=== PATIENT | female | born 1945 | race Caucasian/White ===

== ENCOUNTER 2019-06-23 05:34 | Outpatient (RCR) | payer MEDICARE, SELFPAY | END 2019-06-23 23:59 | disposition home or self-care (01) | LOC: ONCMED 05:34 | PROVIDERS: Family Provider Family Medicine; Referring Provider Surgery; Visit Provider Internal Medicine Hematology & Oncology | DX: Z51.11 Encounter for antineoplastic chemotherapy (principal); C20 Malignant neoplasm of rectum; C78.7 Secondary malignant neoplasm of liver and intrahepatic bile duct; K59.00 Constipation, unspecified; Z92.3 Personal history of irradiation; R91.8 Other nonspecific abnormal finding of lung field; Z91.81 History of falling | CPT/HCPCS: 36415; 80053; 85025; 96367; 96368; 96374; 96375; 96413; 96415; 96416; 96417; 99214; J0640; J1100; J1642; J2405; J2469; J9035; J9263 ×2 ==

== ENCOUNTER 2019-07-12 05:35 | Outpatient (RCR) | payer SELFPAY | END 2019-07-19 00:01 | LOC: ONCMED 05:35 | PROVIDERS: Family Provider Family Medicine; Referring Provider Surgery; Visit Provider Internal Medicine Hematology & Oncology | DX: C20 Malignant neoplasm of rectum (principal); C78.7 Secondary malignant neoplasm of liver and intrahepatic bile duct; R91.8 Other nonspecific abnormal finding of lung field; S02.32XD Fracture of orbital floor, left side, subsequent encounter for fracture with routine healing; S02.40DD Maxillary fracture, left side, subsequent encounter for fracture with routine healing; W19.XXXD Unspecified fall, subsequent encounter; Z91.81 History of falling; Z79.899 Other long term (current) drug therapy | CPT/HCPCS: 80053 ×2; 85025 ×2; 99214 ×2 ==

== ENCOUNTER 2019-07-20 13:52 | Outpatient (RCR) | payer MEDICARE, SELFPAY | END 2019-08-19 23:59 | disposition home or self-care (01) | LOC: MPT 13:52 | PROVIDERS: Family Provider Family Medicine; PCP Family Medicine; Visit Provider Radiology Radiation Oncology | DX: C20 Malignant neoplasm of rectum (principal); R53.1 Weakness; R53.83 Other fatigue | CPT/HCPCS: 97110; 97112 ==

== ENCOUNTER 2019-08-08 06:13 | Outpatient (RCR) | payer MEDICARE, SELFPAY ==
[2019-07-29 11:50] LABS: Basophils % 0.3 %; Eosinophils % 0.3 %; Hematocrit 38.4 % (37.0-47.0); Hemoglobin 12.4 g/dL (11.5-15.3); Lymphocytes # 1.3 10^3/uL (0.8-4.8); Lymphocytes % 20.3 %; Mean Corpuscular HGB Conc 32.3 g/dL (30.0-36.0); Mean Corpuscular Hemoglobin 32.5 pg (28.0-34.0); Mean Corpuscular Volume 100.5 fL (81-99); Mean Platelet Volume 9.9 fL (7.4-10.4); Monocytes # 0.4 10^3/uL (0.2-0.9); Neutrophils # 4.4 10^3/uL (1.8-7.7); Neutrophils % 71.9 %; Nucleated Red Blood Cells % 0 %; Platelet Count 304 10^3/cmm (130-400); Red Blood Count 3.82 10^6/uL (4.1-5.3); White Blood Count 6.2 10^3/uL (4.0-10.0)
[2019-07-29 11:58] LABS: Alanine Aminotransferase 55 U/L (0-33); Albumin Level 3.3 g/dL (3.5-5.2); Alkaline Phosphatase 170 IU/L (35-105); Anion Gap 13.2 (5-19); Aspartate Amino Transferase 94 U/L (0-32); Blood Urea Nitrogen 22 mg/dL (8-23); Calcium 9.4 mg/Dl (8.8-10.2); Carbon Dioxide 32 mmol/L (22-29); Chloride 99 mmol/L (98-107); Globulin 2.4 g/dL (1.3-4.6); Glucose 85 mg/dL (74-106); Potassium 3.2 mmol/L (3.5-5.1); Sodium 141 mmol/L (136-145); Total Bilirubin 0.4 mg/dL (0.15-1.2); Total Protein 5.7 g/dL (6.6-8.7)
--- NOTE | 2019-08-02 14:22 | ONC FU_ITS ---
Dr. Elena follow up note Patient: Adriana Garcia Unit #: [id number]: 1945 Dicatated By: Angeles Elena M.D.Date of Visit:Aug 02, 2019 Onc Med Follow-up/Prog Note History of Present Illness: Mrs. Adriana Garcia, is a 73-year-old female with history of bright red blood per rectum, initially thought due to hemorrhoids and on 03/02/2019 she underwent colonoscopy which showed rectal mass biopsy was taken and it confirmed infiltrating adenocarcinoma CT scan of abdomen pelvis was done on 03/02/2019 showed locally invasive rectal neoplasm with infiltration of perirectal soft tissue. Small perirectal lymph nodes Next generation sequencing showed MSI/MMR proficient, NTRK1/2/3 fusion not detected, KRAS /NRAS mutation not detected e.g. may benefit from cetuximab or panitumumab . Hepatic metastatic disease, suspicious for bilateral lower lobe pulmonary metastatic disease Due to massive rectal bleeding, as per patient it was like having menstrual periods radiation oncology was consulted and patient started palliative radiation therapy to the rectum on 03/11/2019 now rectal bleeding has resolved. As per patient, She has history of pulmonary nodules for which she was evaluated in [place] by tower hand, about 3 years ago. At that time she underwent lung biopsy and she was told there was no evidence of malignancy but some sort of infection very common in [place] soil Now being treated with palliative radiation therapy to rectum for rectal bleed, which has resolved and she will conclude her radiation therapy tomorrow morning CT PET scan was done on 03/26/2019 showed hypermetabolic rectal mass and 2 hepatic metastatic lesion and subcentimeter bilateral pulmonary nodules, too small to characterize (as per patient she underwent pulmonary evaluation in the past and lung biopsy was done which showed no malignancy but chronic inflammation/infection due to some 'bugs', commonly seen in [place] soil) Liver biopsy done on 04/18/2019 confirmed metastatic mucinous adenocarcinoma patient has history of frequent falls prior to metastatic rectal cancer diagnosis. In the past she has seen neurologists Dr. Clayton she did diagnose her with sacroiliitis for which local steroid injections were given with some benefits and now being managed in pain clinic. Reason for her frequent falls was attributed to lower extremity weakness for which she was referred to physical therapy, now tolerating well. Started on systemic chemotherapy with modified dose FOLFOX on 04/26/2019 Avastin was added with second cycle on 05/10/2019 Underwent follow-up flexible sigmoidoscope he on 05/02/2019 which showed necrotic mass in the rectum, no bleeding or obstruction was seen patient had episode of fall and sustained left facial injury for which she went to [facility] on 06/30/2019 CT scan of the head was done which showed small acute right frontal, temporal and parietal region subdural hematoma maximum diameter 4 mm. And also showed extensive facial bone fractures on the left. And CT scan of the facial bone done on same day showed comminuted fracture involving the floor of the left orbit and lateral wall of the left maxillary sinus. Left zygomatic arch fracture. Air-fluid level left maxillary sinus.. Patient was observed in the hospital for 48 hours.As per patient she usually uses walker to walk around but this time she did not use her walker and lost balance and had a fall. Came for follow-up denies any specific complaints, more alert, no fever or chills, no nausea or vomiting, no headaches or blurred vision double vision, still has lower extremity weakness but physical therapy is helping her some. Also recently underwent nerve block for chronic lower back pain. No peripheral numbness. No urine or stool incontinence. During her last visit due to mental status changes she was sent to ER for evaluation where she underwent CT scan of head which showed resolution of hematoma seen on previous CT scan of head. Medications: Aleve 1 (220 mg) Tablet Oral PRN, Cetirizine HCl 1 (10 mg) Tablet Oral daily, EpiPen 2-Genaro Injection PRN, hydroCHLOROthiazide 1 Tablet (of 12.5 mg) Oral daily, Lactulose 15 mL (of 10 g/15mL) Solution Oral b.i.d., LaMICtal 1 (200 mg) Tablet Oral b.i.d., Olopatadine HCl Solution Ophthalmic PRN, Oxybutynin Chloride 1 Tablet (of 5 mg) Oral b.i.d., rOPINIRole HCl 2 Tablet (of 0.25 mg) Oral b.i.d., Simvastatin 1 Tablet (of 20 mg) Oral daily, Ziprasidone HCl 1 Capsule (of 20 mg) Oral daily Allergies: Aspirin, busPIRone HCl, Lisinopril, Lyrica, Penicillins, Sulfacetamide Sodium, and traMADol HCl. Review of Systems: Constitutional - Appetite is fair but weight is decreasing. No fever, chills, hot flashes, or night sweats. Energy level is poor, ENMT - No sinus congestion/drainage. No mouth sores. No sore throat or difficulty swallowing, Hematologic/Lymphatic - No abnormal bruising or bleeding, Respiratory - Positive for shortness of breath. No cough. No pleuritic pain or hemoptysis, Cardiovascular - No angina pain. No palpitations, Gastrointestinal - No nausea or vomiting. No heartburn or acid reflux. Positive for diarrhea. Positive for constipation, Genitourinary (F) - No dysuria or hematuria. No urinary frequency. No urgency or incontinence, Musculoskeletal - Positive for back pain, Neurologic - No headache or dizziness. Pt is more alert today than previous visit, Psychiatric - Pt is in good spirits today. Vital Signs: Vitals are not available for this patient. Performance Status: 2 - Ambulatory/capable of all self-care, unable to perform any work activities. Up and about more than 50% of waking hours. (ECOG) Physical Examination: ENMT - No oral exudates, ulcers, masses, thrush or mucositis. Oropharynx clear. Tongue normal, Respiratory - Lungs are clear to auscultation without rhonchi or wheezing, Cardiovascular - Regular rate and rhythm of heart, Abdomen - Non-tender, non-distended, no masses, . Good bowel sounds. No guarding or rebound tenderness. No pulsatile masses, Extremities - no edema. Lab/Imaging: Test performed on Jul 29, 2019 07:15 Glucose 85 mg/dL BUN 22 mg/dL Creatinine 1.2 mg/dL Cr Clearance (Est) 36.23 mL/min Sodium 141 mmol/L Potassium 3.2 mmol/L Chloride 99 mmol/L CO2 32 mmol/L Calcium 9.4 mg/dL Protein, Total 5.7 g/dL Albumin 3.3 g/dL Globulin 2.4 g/dL Bilirubin, Total 0.4 mg/dL Alkaline Phosphatase 170 IU/L AST (SGOT) 94 IU/L ALT (SGPT) 55 IU/L WBC 6.2 10^9/L RBC 3.82 10^12/L HGB 12.4 g/dL HCT 38.4 % MCV 100.5 fl MCH 32.5 pg MCHC 32.3 g/dL RDW 15.0 % Platelet Count 304 10^9/L MPV 9.9 fL Neutrophils (Gran) 4.4 10^9/L Lymphocytes 1.3 10^9/L Monocytes 0.4 10^9/L Eosinophils 0.0 10^9/L Basophils 0.0 10^9/L Neutrophil % 0.3 % Manual Lymphocytes 20.3 % Manual Monocytes 7.0 % Manual Eosinophils 0.3 % Manual Basophils 0.3 % NRBCs 0.0 /100 WBC Test performed on Jul 11, 2019 07:55 Anion Gap 17.2 Lymphocyte % 19.7 % Monocyte % 16.0 % Eosinophil % 0.0 % Basophils % 0.6 % Test performed on Jun 06, 2019 08:00 Magnesium 2.1 mg/dL Test performed on May 10, 2019 11:50 Ua Color STRAW Ua Appearance CLEAR Ua Glucose NORM Ua Bilirubin NEG Colored urine samples may result in false positive dipstick reactions. Ua Ketones NEG Ua Specific [place] 1.005 Ua Blood NEG Ua pH 6.5 Ua Protein NEG Ua Nitrites NEG Ua Leukocyte Esterase NEG Test performed on Mar 29, 2019 11:39 CEA 70.1 ng/mL Test performed on Mar 22, 2019 17:06 Ferritin 50.0 ng/ml Iron 24 ug/dL % Iron Saturation 13.3 % Impression: Metastatic mucinous adenocarcinoma of rectum, per liver biopsy done on 04/18/2019 Status post radiation therapy alone to the rectum for rectal bleed which was completed on 03/30/2019 Persistent constipation and off-and-on rectal bleed, etiology unclear could be due to residual disease or disease progression. Infiltrating adenocarcinoma of the rectum per colonoscopy done on 03/02/2019 CT scan of abdomen pelvis done on 03/02/2019 showed next Locally invasive rectal neoplasm. Neoplastic infiltration of perirectal soft tissues and probable involvement of lateral margin of mesorectum suspected. Small perirectal lymph nodes. Hepatic metastatic disease, space-occupying mass lesion of heterogeneous decreased enhancement involves the segment left lobe liver measuring 5.4 x 6.4 x 4.9 cm. Subcapsular focus of decreased enhancement in the superior margin of the liver measuring 1 cm in diameter Suspicious bilateral lower lobe pulmonary metastatic disease As per patient she has history of pulmonary nodules, was evaluated by tower hand in [place] and underwent lung biopsy, it was benign she was told that those nodules are due to some 'bugs'commonly seen in [facility] .CT PET was done on 03/26/2019 which shows is a hypermetabolic rectal mass measuring 4 cm with SUV of 12.3, no significant pelvic nodes are present 2 hepatic lesions are noted and the dominant lesion in the lateral left hepatic lobe measures 6.8 x 4.5 cm with SUV of 11.9 with extensive central necrosis and a second lesion in the right hepatic dome lesion measuring 1.2 cm with SUV of 5.9. Pulmonary nodules in the right upper lobe and left upper lobe and left lower lobe measuring up to 8 mm, too small to characterize. Started on modified dose FOLFOX on 04/26/2019 Plan: Discussed with patient and her daughter about her labs white blood count 6.2 hemoglobin 12.4 crit 38.4 platelets 304,000 CMP within normal limit except potassium 3.2 ALT 55 AST 94 alkaline phosphatase 170 Clinically, patient is doing reasonably well, her mental status has improved significantly. Family and patient was to resume her palliative chemotherapy for metastatic colon cancer. At this point we will proceed with the next cycle of chemotherapy but without oxaliplatin and Avastin as patient has persistent lower extremity weakness etiology unclear and also history of recent subdural hematoma due to fall,. Patient will return to clinic on Thursday to receive her sixth cycle of chemotherapy and followed by CT PET scan to assess the response if it shows good response then we may consider adding Camptosar to the regimen if it shows disease progression then were discussed with family regarding hospice care or folfiri regimen. Return to clinic after CT PET scan. As far as mild nausea is concern, patient is neurologist has discontinue her Compazine so we'll consider Zofran 4 mg every 8 hours as needed. Signed By: Angeles Elena M.D. <<Signature on File>>
[2019-08-08 09:53] LABS: Basophils % 0.2 %; Eosinophils % 0.1 %; Lymphocytes # 1.1 10^3/uL (0.8-4.8); Lymphocytes % 13.6 %; Mean Corpuscular HGB Conc 32.4 g/dL (30.0-36.0); Mean Corpuscular Hemoglobin 31.5 pg (28.0-34.0); Mean Corpuscular Volume 97.4 fL (81-99); Mean Platelet Volume 9.6 fL (7.4-10.4); Monocytes # 0.6 10^3/uL (0.2-0.9); Monocytes % 6.9 %; Neutrophils # 6.5 10^3/uL (1.8-7.7); Neutrophils % 78.8 %; Nucleated Red Blood Cells % 0 %; Platelet Count 326 10^3/cmm (130-400); Red Blood Count 3.49 10^6/uL (4.1-5.3); Red Cell Distribution Width 14.3 % (12.1-15.1); White Blood Count 8.3 10^3/uL (4.0-10.0)
[2019-08-08 10:09] LABS: Alanine Aminotransferase 37 U/L (0-33); Alkaline Phosphatase 174 IU/L (35-105); Anion Gap 13.9 (5-19); Aspartate Amino Transferase 67 U/L (0-32); Blood Urea Nitrogen 24 mg/dL (8-23); Calcium 9.4 mg/Dl (8.8-10.2); Carbon Dioxide 29 mmol/L (22-29); Chloride 99 mmol/L (98-107); Glucose 103 mg/dL (74-106); Potassium 3.9 mmol/L (3.5-5.1); Sodium 138 mmol/L (136-145); Total Bilirubin 0.4 mg/dL (0.15-1.2)
[2019-08-08 10:42] LABS: Carcinoembryonic Antigen 0.2 ng/mL (0.0-4.7)
== END 2019-08-19 23:59 | disposition home or self-care (01) ==
LOC: ONCMED 06:13
PROVIDERS: Family Provider Family Medicine; PCP Family Medicine; Visit Provider Internal Medicine Hematology & Oncology
DX: C20 Malignant neoplasm of rectum (principal); C78.7 Secondary malignant neoplasm of liver and intrahepatic bile duct; G89.29 Other chronic pain; M54.5 Low back pain; K59.00 Constipation, unspecified; R91.8 Other nonspecific abnormal finding of lung field; Z79.899 Other long term (current) drug therapy; Z91.81 History of falling; Z92.3 Personal history of irradiation
CPT/HCPCS: 36591; 80053; 82378; 85025; 99214

== ENCOUNTER 2019-08-20 06:00 | Outpatient (RCR) | payer MEDICARE, SELFPAY | END 2019-09-17 23:59 | disposition home or self-care (01) | LOC: MPT 06:00 | PROVIDERS: Family Provider Family Medicine; PCP Family Medicine; Visit Provider Radiology Radiation Oncology | DX: Z01.89 Encounter for other specified special examinations (principal) ==